=== PATIENT | female | born 1970 | race Caucasian/White ===

== ENCOUNTER 2019-01-12 16:08 | Outpatient (REF) | payer SELFPAY ==
[2019-01-12 22:15] LABS: Abs Immature Grans 0.01 k/cumm (0.0-0.09); Absolute Basophil Count 0.02 k/cumm (0.0-0.2); Absolute Eosinophil Count 0.15 k/cumm (0.0-0.7); Absolute Lymphocyte Count 2.23 k/cumm (1.2-3.4); Absolute Neutrophil Count 4.59 k/cumm (1.2-6.7); Basophils % 0.3; HCT 36.7 % (36.0-46.0); HGB 12.4 g/dL (12.0-15.5); Immature Grans % 0.1; Lymphocytes % 29.3; Mean Corp. HGB Concentration 33.8 g/dL (32.0-36.0); Mean Corpuscular Hemoglobin 29.8 pg (27.0-33.0); Mean Corpuscular Volume 88.2 fL (80-95); Mean Platelet Volume 10.1 fL (8.0-11.0); Monocytes % 7.9; Neutrophils % 60.4; Platelet Count 337 x1000/uL (130-400); RBC 4.16 m/cumm (4.00-5.20); RBC Distribution Width 13.5 % (11.7-14.6)
[2019-01-12 22:23] LABS: Iron 24 ug/dL (50-175); Total Iron Binding Capacity 432 ug/dL (250-450); Transferrin Sat 6 % (15-50)
[2019-01-12 22:32] LABS: ALT 15 U/L (12-78); AST 10 U/L (15-37); Albumin 3.9 g/dL (3.4-5.0); Alkaline Phosphatase 86 U/L (46-116); Anion Gap 11.4 mmol/L (3-11); BUN 7 mg/dL (7-18); Bilirubin, Total 0.3 mg/dL (0.2-1.0); CO2 24.6 mmol/L (21.0-32.0); CREATININE 0.57 mg/dL (0.55-1.02); Chloride 100 mmol/L (98-107); Ferritin 10 ng/mL (8-388); Glucose 360 mg/dL (70-100); Potassium 4.5 mmol/L (3.5-5.1); Sodium 136 mmol/L (136-145); TSH (W/Ref FT4) 1.24 uIU/mL (0.36-3.74); Total Protein 7.2 g/dL (6.4-8.2)
[2019-01-14 09:34] LABS: Transferrin 333 mg/dL (201-352)
== END 2019-01-12 16:28 ==
LOC: NCHCN 16:08
PROVIDERS: PCP Family Medicine; Visit Provider Family Medicine
DX: R63.4 Abnormal weight loss (principal); R53.83 Other fatigue; R63.1 Polydipsia
CPT/HCPCS: 80053; 82728; 83540; 83550; 84443; 84466; 85025

== ENCOUNTER 2020-01-15 14:43 | Outpatient (REF) | payer OTHER, SELFPAY ==
[2020-01-15 21:33] LABS: COMMENT (LAB VIEW ONLY) 31.55 mg/dL; Microalb ug/mg Crea 33.6 ug/mg Cr
[2020-01-15 21:33] LABS: Iron 88 ug/dL (50-170)
[2020-01-15 21:51] LABS: TSH (W/Ref FT4) 1.15 uIU/mL (0.36-3.74)
[2020-01-15 21:59] LABS: ALT 10 U/L (14-59); AST 12 U/L (15-37); Alkaline Phosphatase 47 U/L (46-116); Anion Gap 9.1 mmol/L (3-11); BUN 5 mg/dL (7-18); Bilirubin, Total 0.3 mg/dL (0.2-1.0); CO2 25.9 mmol/L (21.0-32.0); CREATININE 0.46 mg/dL (0.55-1.02); Calcium 9.4 mg/dL (8.5-10.1); Calculated LDL 86 mg/dL (<100); Chloride 103 mmol/L (98-107); Cholesterol 145 mg/dL (<200); Ferritin 14 ng/mL (8-252); Glucose 188 mg/dL (74-106); HDL Cholesterol 45 mg/dL (40-60); Potassium 4.3 mmol/L (3.5-5.1); Sodium 138 mmol/L (136-145); Triglyceride 71 mg/dL (<150)
[2020-01-18 12:47] LABS: IgA 156 mg/dL (85-499); Interpretation (See Note); Tissue Transglutaminase IgA <1.2 U/mL (<4.0)
[2020-01-22 10:33] LABS: GAD65 Ab Assay 0.17 nmol/L (<= 0.02)
== END 2020-01-15 15:03 ==
LOC: NCHCN 14:43
PROVIDERS: Family Medicine; PCP Family Medicine; Visit Provider Family Medicine
DX: R63.6 Underweight (principal); E11.65 Type 2 diabetes mellitus with hyperglycemia; R03.0 Elevated blood-pressure reading, without diagnosis of hypertension; E61.1 Iron deficiency; N93.9 Abnormal uterine and vaginal bleeding, unspecified
CPT/HCPCS: 80053; 80061; 82306; 82784; 83516; 86341; 82043; 82570; 82728; 83540; 84443; 86337

== ENCOUNTER 2020-03-18 10:16 | Outpatient (REF) | payer OTHER, SELFPAY ==
[2020-03-18 21:26] LABS: Hemoglobin A1C 8.3 % (<5.7)
[2020-03-21 08:16] LABS: Vitamin D 25 Total 43.6 ng/ml (30-100)
== END 2020-03-18 10:36 ==
LOC: NCHCN 10:16
PROVIDERS: PCP Family Medicine; Visit Provider Family Medicine
DX: E11.65 Type 2 diabetes mellitus with hyperglycemia (principal); E55.9 Vitamin D deficiency, unspecified
CPT/HCPCS: 82306; 83036

== ENCOUNTER 2020-12-01 15:17 | Outpatient (REF) | payer OTHER, SELFPAY ==
--- NOTE | 2020-12-01 15:00 | PAPFT_PTH ---
PATIENT: Irma Manzano [id number] AGE/SX: 50/F ROOM: RE12/01/[address]: Natalie Jeff : 1970 BED: DIS: 12/01/2020 SPEC #: [id number] RECD: 12/02/20 13:09 STATUS: [place] REQ #: [id number] BEATRIZ: 12/01/20 15:[address]: Natalie Jeff DEPT: [facility] Cytology RECD BY: Otilia Polanco ENTERED: 12/02/20 13:09 SP TYPE: PAPFT OTHR DR: Naila Marcial Tissues: 1 - CX/ENDOCX FOR PAP SMEARS Procedures: PAP THIN PREP/UVM Screening HPV DNA PROBE Comments: [id number]
== END 2020-12-01 15:18 | disposition home or self-care (01) ==
LOC: NCHCN 15:17
PROVIDERS: PCP Family Medicine; Visit Provider Family Medicine
DX: Z00.00 Encounter for general adult medical examination without abnormal findings (principal); Z12.4 Encounter for screening for malignant neoplasm of cervix; Z11.51 Encounter for screening for human papillomavirus (HPV)
CPT/HCPCS: 88142; 87624

== ENCOUNTER 2022-09-07 21:37 | Outpatient (REF) | payer OTHER, SELFPAY ==
[2022-09-07 22:03] LABS: Anion Gap 5.4 mmol/L (3-11); BUN 13 mg/dL (7-18); CO2 28.6 mmol/L (21.0-32.0); CREATININE 0.9 mg/dL (0.55-1.02); Calcium 9.7 mg/dL (8.5-10.1); Calculated LDL 110 mg/dL (<100); Chloride 101 mmol/L (98-107); Cholesterol 199 mg/dL (<200); Estimated GFR 76.92 (mL/min/1.73m2); Glucose 215 mg/dL (74-106); HDL Cholesterol 82 mg/dL (40-60); Potassium 4.6 mmol/L (3.5-5.1); Sodium 135 mmol/L (136-145); Triglyceride 37 mg/dL (<150)
[2022-09-07 22:30] LABS: Microalb ug/mg Crea 6.4 ug/mg Cr
== END 2022-09-07 21:38 | disposition home or self-care (01) ==
LOC: NCHCN 21:37
PROVIDERS: PCP Family Medicine; Visit Provider Registered Nurse
DX: E10.9 Type 1 diabetes mellitus without complications (principal); I10 Essential (primary) hypertension
CPT/HCPCS: 80048; 80061; 82043; 82570

== ENCOUNTER 2024-02-04 16:12 | Outpatient (REF) | payer OTHER, SELFPAY ==
--- OUTSIDE RECORDS SUMMARY | 2024-02-04 16:16 | XMS_ITS | Encounter Summary ---
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 Never 06/28/2020 Average Number of Drinks Not on file 021 Frequency of Binge Drinking Not on file 06/17 Interpersonal Safety Answer Date Record ed Physically Hurt Never 05/10/2020 Verbally Threaten Not on file 05/10/2020 Sex and Gender Information Value Date Recorded Sex Assigned at Not on file Gender Identity Female 06/28/2020 9:14 EST Sexual Orientation Not on file COVID-19 Exposure Response Date Recorded In the last month, have you been in contact with someone who was confirmed or suspected to have Coronavirus / COVID-19? No / Unsure 07/01/2020 12:32 EST documented as of this encounter Last Filed Vital Signs Vital Sign Reading Time Taken Comments Blood Pressure 142/86 07/28/2020 0811 EST Pulse 64 07/28/2020 0811 EST Temperature - - Respiratory Rate 16 07/28/2020 0811 EST Oxygen Saturation - - Inhaled Oxygen Concentration - - Weight 52.2 kg (115 lb) 07/28/2020 0811 EST Height - - Body Mass Index 17.03 06/28/2020 1256 EST documented in this encounter Patient Instructions * Patient Instructions* Coco Gamboa, JIN - 07/28/2020 8:00 EST Images from the original note were not included. Switch lantus to the morning and decrease to 9 units. Continue to use [employer] CGM. Follow-up in 2 months. Sign up for [employer] account and reach out in 1 month to review data with concerns. [facility] Patient Instructions Noninsulin Medicines for Type 2 Diabetes: Care Instructions Overview There are different types of noninsulin medicines for diabetes. Each works in a different way. But they all help you control your blood sugar. Some types help your body make insulin to lower your blood sugar. Others lower how much insulin your body needs. Some can slow how fast your body digests sugars. And some can remove extra glucose through your urine. You may need to take more than one medicine for diabetes. Two or more medicines may work better to lower your blood sugar level than just one does. ?? Metformin. This lowers how much glucose your liver makes. And it helps you respond better to insulin. It also lowers the amount of stored sugar that your liver releases when you are not eating. ?? Sulfonylureas. These help your body release more insulin. Some work for many hours. They can cause low blood sugar if you don't eat as you planned. An example is glipizide. ?? Thiazolidinediones. These reduce the amount of blood glucose. They also help you respond better to insulin. An example is pioglitazone. ?? SGLT2 inhibitors. These help to remove extra glucose through your urine. They may also help somepeople lose weight. An example is ertugliflozin. ?? DPP-4 inhibitors. These help your body raise the level of insulin after you eat. They also help your body make less of a hormone that raises blood sugar. An example is alogliptin. ?? Incretin hormones (GLP-1 receptor agonists). These help your body make a protein that can raise your insulin level and make you less hungry. They're given as shots or pills. An example is semaglutide. ?? Meglitinides. These help your body release insulin. They also help slow how your body digests sugars. So they can keep your blood sugar from rising too fast after you eat. ?? Alpha-glucosidase inhibitors. These keep starches from breaking down. This means that they lowerthe amount of glucose absorbed when you eat. They don't help your body make more insulin. So they will not cause low blood sugar unless you use them with other medicines for diabetes. Follow-up care is a galdamez part of your treatment and safety. Be sure to make and go to all appointments, and call your doctor if you are having problems. It's also a good idea to know your test resultsand keep a list of the medicines you take. How can you care for yourself at home? ?? Eat a healthy diet. Get some exercise each day. This may help you to reduce how much medicine you need. ?? Do not take other prescription or gnoq-qtq-gzlkmjn medicines, vitamins, herbal products, or supplements without talking to your doctor first. Some medicines for type 2 diabetes can cause problems with other medicines or supplements. ?? Tell your doctor if you plan to get . Some of these drugs are not safe for women. ?? Be safe with medicines. Take your medicines exactly as prescribed. Meglitinides and sulfonylureas can cause your blood sugar to drop very low. Call your doctor if you think you are having a problem with your medicine. ?? Check your blood sugar often. You can use a glucose monitor. Keeping track can help you know howcertain foods, activities, and medicines affect your blood sugar. And it can help you keep your blood sugar from getting so low that it's not safe. When should you call for help? Call 911 anytime you think you may need emergency care. For example, call if: ? You passed out (lost consciousness). ? You are confused or cannot think clearly. ? Your blood sugar is very high or very low. Watch closely for changes in your health, and be sure to contact your doctor if: ? Your blood sugar stays outside the level your doctor set for you. ? You have any problems. Where can you learn more? Go to https://www.Scurri.net/GlycomindsealSkyFuel or log into your [employer] account at https://[employer].Voddler Enter H153 in the search box to learn more about Noninsulin Medicines for Type 2 Diabetes: Care Instructions. Current as of: June 05, 2019?Content Version: 12.6 ?? [id number] [employer]. Care instructions adapted under license by [facility]. If you have questions about a medical condition or this instruction, always ask your healthcare professional. [employer] disclaims any warranty or liability for your use of this information. documented in this encounter Progress Notes * Sally Krause RN - 07/28/2020 0800 EST Needs eye exam A1c done A1c 7.2 - 06/16/2020 Lab Results Component Value Date UABCR 23.7 06/28/2020 * Coco Gamboa APRN - 07/28/2020 0800 EST Reason for Visit: DM f/up PCP: Dr. Jeff OTHER PROVIDERS: Irma Manzano is a 50 y.o. male/female who presented to the clinic for a follow-up in [facility], with a history of DM for 1.5 yrs. Hx of former smoker (quit 05/2020). Referred from [facility]. Diagnosed in late 40's with A1C 14.5, BG 400 (02/2019). IRENE positive, ICA and IAA negative (04/2020)TSH 1.15 (12/2019). Cpeptide 0.5 fasting. 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 Although she is flex and often switches her shifts. She lives with her boyfriend and states he is a good support to her. She has 3 adult children with 4 grandkids. She reports smoking cessation about 3 weeks now. Difficult to maintain as her live-in boyfriends also smokes. Random BG in clinic 116 via CGM. Sylvia 2 CGM TIR 77%, TAR 22%, TBR 1%. CV 28.1% GMI 6.9%. She has appreciated the Sylvia CGM. She is much more aware of her BG trend throughout the day. States she initially noticed a trend in the afternoon, evenings of a higher BG's. She spoke with her PCP and they increased to 10 units of lantus. She has noticed some lows overnight. [facility] DM: mom w/ GUILLERMO (diagnosed at age 50) Maternal uncle w/ TIIDM MGF stroke believes heart concerns on her dad side. Recent A1C: 7.2 (05/2020) 8.2 (03/2020) Diabetic Medications: Metformin 1000 mg BID Lantus 10 units at bedtime (started a couple months ago) Current monitoring regimen: twice a day Frequency of monitoring? : Fasting range: 80-125 (can get down to 60-70's.) Preprandial range: before dinner- 80-130 Postprandial range: Any episodes of hypoglycemia? About 5 episodes since starting insulin Cause of hypoglycemia? Work Nutrition Daily Recall: Breakfast: protein-egg/turkey sausage, WW toast, homefries, coffee w/ SF coffeemate, kiswahili yogurt Lunch: sandwich w/ turkey/cheddar/lettuce/tomato, soup chicken/noodle Dinner: soup if at work, cheese sticks, Snacks: not much, crackers w/ PB, yogurt, Beverages: coffee, SF soda, no etoh. Exercise: active at work, plays/walks with dogs, when able to plays with grandkids. Diabetes Related Problems Eye exam current (within one year): Overdue. Needs to schedule. Wears glasses. Last dental exam: overdue. CVD,PVD,CAD: no Statin: no, well controlled (12/2019) Aspirin: no ACEI/ARB: no Prior visit with director post: no Foot care: self Comorbidities: Retinopathy: no Nephropathy/Kidney function: GFR >60 (01/2020) MCR up to date? no Neuropathy: no Review of Systems Constitutional: Negative. Eyes: Negative. Endocrine: Negative. Neurological: Negative. Physical Exam Constitutional: Appearance: Normal appearance. HENT: Head: Normocephalic and atraumatic. Neck: Musculoskeletal: Normal range of motion and neck supple. Cardiovascular: Rate and Rhythm: Normal rate and regular rhythm. Pulmonary: Effort: Pulmonary effort is normal. Breath sounds: Normal breath sounds. Skin: General: Skin is warm and dry. Neurological: Mental Status: She is alert and oriented to person, place, and time. Psychiatric: Mood and Affect: Mood normal. Behavior: Behavior normal. Thought Content: Thought content normal. No results found for: HGBA1C No results found for: MICROALBUR, [id number] No results found for: NA, K, CL, CO2, BUN, CSFGLU, CREATINE, GLU, CA Irma Manzano is a 50 y.o. female who presented to the clinic for a follow-up in [facility] DM, with ahistory of DM for 2 yrs. 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 Discussed how this will help prevent lows overnights. Encouraged her success on good control of her BG's. Continue to use Sylvia CGM. Follow-up in 2 months. Sign up for [employer] account and reach out in 1 month to review data with concerns. Discussed carb intake and adding whole complex carbs. She continues to work on finding an filler blender near her home. Patient Goals: A1C <7% Exercise: 150-300 minutes of CV exercise/week. I spent a total of 30 minutes on the date of this encounter meeting with the patient and reviewing documentation/coordinating care as described in the above note. 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 Discussed how this will help prevent lows overnights. Encouraged her success on good control of her BG's. Continue to use Sylvia CGM. Follow-up in 2 months. Sign up for [employer] account and reach out in 1 month to review data with concerns. Discussed carb intake and adding whole complex carbs. She continues to work on finding an filler blender near her home. 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 07/28/2020 documented as of this encounter Care Teams Audit Control Clerk Relationship Specialty Start Date End Date Juan C [facility] [address] [place] [address] PCP - General 06/28/20 documented as of this encounter
--- OUTSIDE RECORDS SUMMARY | 2024-02-04 16:16 | XMS_ITS ---
Author Organization Unknown Address [address] [place] [address] [phone] Phone Care Team Providers Care Engraving Press Operator Name Role Phone DUKE Mai Attending Unavailable AMBERLY Brumfield Primary Unavailable Results XR WRIST 3V RT* - Completed: 10/16/2022 10:00 [facility] [place], [place] [address] PACS LEGAL REFEREE REPORT Patient Name: ADOLFO MALAGON MRN: Sex: : Age: [id number] F 1970 52 Account: Accession: Admit: StayType: [id number] 10/16/2022 CLINIC Ordered: Order ID: Submitted: Ordering Provider: 10/16/2022 09:53 19772 [facility] SIMONA WALL Completed: Technologist: Resulted: 10/16/2022 10:00 LXR 10/16/2022 10:11 Study Description: XR WRIST 3V RT Study Reason: Pain Technique: 2D digital imaging was performed. 3 images were obtained. COMPARISON: None. FINDINGS: Bones: No acute fractures present. No bony destructive lesion is seen. Joints: No dislocation is present. The joint spaces are well-maintained. Soft tissues: Unremarkable. IMPRESSION: No acute abnormality. Report Digitally Signed by Loi Bassett on 10/16/2022 10:11 AM EDT Social History Type Status Start Date End Date Code Code Syst em Sex Female Hospital Discharge Instructions Should you have any questions prior to discharge, please contact a member of your healthcare team. If you have left the hospital and have any questions, please contact your primary care physician. Reason For Referral No Data Found Plan of Treatment No Data Found Encounters Encounter Diagnosis Start Date Code Code Sys tem 10/16/2022 [id number] SNOMED-CT Personal Care Team Section Performer Name Performer Role Active Date Inactive Da te
--- OUTSIDE RECORDS SUMMARY | 2024-02-04 16:16 | XMS_ITS | Encounter Summary ---
Author Organization [facility] Address [address] [place] [address] Care Team Providers Care Street Light Cleaner Name Role Phone Julio Cesar Irizarry [facility] Primary Care Provider [phone] Encounter Details Date Type Department Care Team (Latest Contact Info) Description 06/28/2020 Travel Social History Tobacco Use Types Packs/Day Years Used Date Smoking Tobacco: Former Cigarettes Q uit: 05/2020 Smokeless Tobacco: Never Alcohol Use Standard Drinks/Week Comments Never 0 (1 standard drink = 0.6 oz pur e alcohol) AUDIT-C Answer Date Recorded Q1: How often do you have a drink containing alc ohol? Never 06/28/2020 Average Number of Drinks Not on file Frequency of Binge Drinking Not on file [...] have Coronavirus / COVID-19? No / Unsure 06/28/2020 12:11 EST documented as of this encounter Plan of Treatment Not on file documented as of this encounter Visit Diagnoses Not on filedocumented in this encounter Care Teams Street Light Cleaner Relationship Specialty Start Date End Date Julio Cesar Irizarry [facility] [address] [place] [address] PCP - General 06/28/20 documented as of this encounter
--- OUTSIDE RECORDS SUMMARY | 2024-02-04 16:16 | XMS_ITS | Encounter Summary ---
Author Organization [facility] Address [address] [place] [address] Care Team Providers Care Sales Floor Team Member Name Role Phone Julio Cesar Irizarry [facility] Primary Care Provider [phone] Reason for Visit * Reason Onset Date Comments Medications Refill 07/13/2020 Encounter Details Date Type Department Care Team (Late st Contact Info) Description 07/13/2020 Refill [facility] Endocrinology [address] [place] [address] Sally Kraues RN Medications Refill Social History Tobacco Use Types Packs/Day Years [...] 12:32 EST documented as of this encounter Ordered Prescriptions Prescription Sig Dispensed Refills Start Date End Da te flash glucose sensor (FREESTYLE JOAO 2 SENSOR) kit 1 Units by misc (non-drug; combo route) route every 14 days. 6 Kit 3 07/13/2020 06/13/2021 documented in this encounter Plan of Treatment Not on file documented as of this encounter Visit Diagnoses Not on filedocumented in this encounter Care Teams Sales Floor Team Member Relationship Specialty Start Date End Date Juan C [facility] [address] [place] [address] PCP - General 06/28/20 documented as of this encounter
--- OUTSIDE RECORDS SUMMARY | 2024-02-04 16:16 | XMS_ITS | Encounter Summary ---
Author Organization [facility] Address [address] [place] [address] Care Team Providers Care Waist Pleater Name Role Phone Julio Cesar Irizarry [facility] Primary Care Provider [phone] Reason for Visit * Reason Onset Date Comments Medications Refill 06/13/2021 Encounter Details Date Type Department Care Team (Late st Contact Info) Description 06/13/2021 Telephone [facility] Endocrinology [address] [place] [address] Shanthi Garcia RN Medications Refill Social History Tobacco Use [...] 9:14 EST Sexual Orientation Not on file documented as of this encounter Ordered Prescriptions Prescription Sig Dispensed Refills Start Date End Da te flash glucose sensor (FREESTYLE JOAO 2 SENSOR) kit 1 Units by misc (non-drug; combo route) route every 14 days. Must keep appt for additional refills. 6 Kit 06/13/2021 documented in this encounter Miscellaneous Notes * Telephone Encounter - Jana Porter - 06/19/2021 1643 EST Left message for patient to call to schedule an appointment with Coco * Telephone Encounter - Shanthi Garcia RN - 06/13/2021 1606 EST Prescription faxed to pharmacy per Coco Gamboa's orders. documented in this encounter Plan of Treatment Not on file documented as of this encounter Visit Diagnoses Not on filedocumented in this encounter Discontinued Medications Medication Sig Discontinue Reason Start Date End Da te flash glucose sensor (FREESTYLE JOAO 2 SENSOR) kit 1 Units by misc (non-drug; combo route) route every 14 days. Reorder 07/13/2020 06/13/2021 documented as of this encounter Care Teams Waist Pleater Relationship Specialty Start Date End Date Juan C [facility] [address] [place] [address] PCP - General 06/28/20 documented as of this encounter
--- OUTSIDE RECORDS SUMMARY | 2024-02-04 16:16 | XMS_ITS | Encounter Summary ---
Author Organization [facility] Address [address] [place] [address] Care Team Providers Care Social Work Nurse Name Role Phone Juan C [facility] Primary Care Provider [phone] [phone] Encounter Details Date Type Department Care Team (Late st Contact Info) Description 12/05/2020 Lab Requisition [facility] Pathology & Laboratory Medicine - [facility] [address] [place] [address] Lindsey Jeff MD [address] [place] [address] [address] [place], [place] [address] Encounter for general adult medical examination without abnormal findings; Encounter for screening for malignant neoplasm of cervix Social History Tobacco Use Types Packs/Day Years [...] on file documented as of this encounter Plan of Treatment Not on file documented as of this encounter Procedures Procedure Name Priority Date/Time Associated Diagnosis Comments PAP TEST Today 12/01/2020 15:00 EDT Encounter for general adult medical examination without abnormal findings Encounter for screening for malignant neoplasm of cervix HPV DNA DETECTION WITH GENOTYPING, PCR Today 12/01/2020 15:00 EDT Encounter for general adult medical examination without abnormal findings Encounter for screening for malignant neoplasm of cervix documented in this encounter Results * HUMAN PAPILLOMAVIRUS (HPV) DETECTION-HIGH RISK TYPES (12/01/2020 15:00 EDT) HPV other High Risk types, PCR Negative Negative 12/14/2020 14:30 EDT [facility] Comment:No E6 or E7 mRNA is detected from HPV types 16,18,31,33,35,39,45,51,52,56,58,59,66, and 68 by freezing machine operator mediated amplification. Papanicolaou smear specimen (specimen) CERVIX UTERI STRUCTURE / Unknown 12/01/2020 15:00 EDT 12/13/2020 11:28 EDT Lindsey Jeff MD MICROBIOLOGY - GENERAL ORDERABLES [facility] [address] [place] [address] * PAP TEST (12/01/2020 15:00 EDT) Specimens A. Cervix and/or Endocervix , ThinPrep Imaging System with Manual Evaluation 12/14/2020 14:30 EDT [facility] Specimen Adequacy Satisfactory for Evaluation - transformation zone component present 12/14/2020 14:30 EDT [facility] General Categorization Negative for intraepithelial lesion or malignancy 12/14/2020 14:30 EDT [facility] Attestation . 12/14/2020 14:30 T [facility] at 1430 Clinical History See below 12/15/19 14:30 EDT [facility] HPV The result for the Human Papillomavirus (HPV) Detection-High Risk Types is Negative. No E6 or E7 mRNA is detected from HPV types 16,18,31,33,35,39 ,45,51,52,56,58,5 9,66, and 68 by freezing machine operator mediated amplification.Candi ting was performed on specimen [id number] and was resulted on 12/14/2020 1430 EDT by DAVIDA, LAB INSTRUMENT RESULTS IN 12/14/2020 14:30 EDT [facility] Performing Lab [facility] 12/14/2020 14:30 EDT [facility] Scanned Images 12/14/2020 14:30 EDT [facility] Papanicolaou smear specimen (specimen) CERVIX UTERI STRUCTURE / Unknown 12/01/2020 15:00 EDT 12/05/2020 15:53 EDT Lindsey Jeff MD PATHOLOGY ORD ERABLES Performing Organization Address City/State/[facility] Co de Phone Number [facility] [address] [place] [address] documented in this encounter Visit Diagnoses Diagnosis Encounter for general adult medical examination without abnormal findings Unspecified general medical examination Encounter for screening for malignant neoplasm of cervix Screening for malignant neoplasm of the cervix documented in this encounter Care Teams Social Work Nurse Relationship Specialty Start Date End Date Juan C, [facility] [address] [place] [address] PCP - General 06/28/20 documented as of this encounter
--- OUTSIDE RECORDS SUMMARY | 2024-02-04 16:16 | XMS_ITS | Encounter Summary ---
Author Organization [facility] Address [address] [place] [address] Care Team Providers Care Toeing Stockings Name Role Phone Julio Cesar Irizarry [facility] Primary Care Provider +1 [phone] Encounter Details Date Type Department Care Team (Latest Contact Info) Description 07/01/2020 Travel Social History Tobacco Use Types Packs/Day [...] 12:32 EST documented as of this encounter Plan of Treatment Not on file documented as of this encounter Visit Diagnoses Not on filedocumented in this encounter Care Teams Toeing Stockings Relationship Specialty Start Date End Date Julio Cesar Irizarry [facility] [address] [place] [address] PCP - General 06/28/20 documented as of this encounter
--- OUTSIDE RECORDS SUMMARY | 2024-02-04 16:16 | XMS_ITS | Encounter Summary ---
Author Organization [facility] Address [address] [place] [address] Care Team Providers Care Upper And Bottom Lacer Hand Name Role Phone Julio Cesar Irizarry [facility] Primary Care Provider [phone] [phone] Reason for Visit * Reason Comments Diabetes Encounter Details Date Type Department Care Team (Late st Contact Info) Description 06/28/2020 13:00 EST Office Visit [facility] Endocrinology [address] [place] [address] Coco Gamboa, LOG DATA TECHNICIAN [address] [facility] [address] [place] [address] Type 2 diabetes mellitus with hyperglycemia, with long-term current use of insulin ([facility]) (Primary Dx) Social History Tobacco Use Types [...] 12:11 EST documented as of this encounter Last Filed Vital Signs Vital Sign Reading Time Taken Comments Blood Pressure 128/82 06/28/2020 1256 EST Pulse 96 06/28/2020 1256 EST Temperature - - Respiratory Rate 16 06/28/2020 1256 EST Oxygen Saturation - - Inhaled Oxygen Concentration - - Weight 51.3 kg (113 lb) 06/28/2020 1256 EST Height 175 cm (5' 8.9) 06/28/2020 1256 EST Body Mass Index 16.74 06/28/2020 1256 EST documented in this encounter Progress Notes * Slaly Krause, VICKY - 06/28/2020 1300 EST [facility] referral Needs eye, foot and micro ? Labs done Last a1c- 06/16/2020=7.2 Glucose-98 * Coco Gamboa APRN - 06/28/2020 1300 EST Reason for Visit: DM initial PCP: Dr. Jeff OTHER PROVIDERS: Irma Manzano is a 49 y.o. male/female who presented to the clinic for an initial consult in [facility], with a history of DM for 1.5 yrs. Hx of former smoker (quit 05/2020). Referred from [facility]. Diagnosed in late 40's with A1C 14.5, BG 400 (02/2019). IRENE positive, ICA and IAA negative (04/2020)TSH 1.15 (12/2019). Initially went on metformin. About 1 year after added Januvia, summer 2019. Notes this worked initially although after a couple of months did not seem to work any longer. Added Lantus end of 2019. States this has greatly helped to bring her BG's down. Notes she lost weight quickly starting about 2 years ago, in total lost about 50 lbs. States she was not trying to loose weight, didn't change her habits at that time. States she has always been underweight, although this episode was much more rapid. Denies GDM with her kids. Denies other health concerns. 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 Although she is flex and often switches her shifts. She lives with her boyfriend and states he is a good support to her. She has 3 adult children with 4 grandkids. She reports smoking cessation about 3 weeks now. Difficult to maintain as her live-in boyfriends also smokes. Random BG in clinic 98, she did have breakfast today. No lunch yet. [facility] DM: mom w/ TIIDM (diagnosed at age 50) Maternal uncle w/ TIIDM MGF stroke ?believes heart concerns on her dad side. Recent A1C: 7.2 (05/2020) 8.2 (03/2020) Diabetic Medications: Metformin 1000 mg BID Januvia 100 mg daily Lantus 8 units at bedtime (started a couple months ago) Current monitoring regimen: twice a day Frequency of monitoring? : Fasting range: 80-125 (can get down to 60-70's.) Preprandial range: before dinner- 80-130 Postprandial range: Any episodes of hypoglycemia? About 5 episodes since starting insulin Cause of hypoglycemia? Work Nutrition Daily Recall: Breakfast: protein-egg/turkey sausage, WW toast, homefries, coffee w/ SF coffeemate, tajik yogurt Lunch: sandwich w/ turkey/cheddar/lettuce/tomato, soup chicken/noodle [...] Aspirin: no ACEI/ARB: no Prior visit with mobile ui/ux designer: no Foot care: self Comorbidities: Retinopathy: no Nephropathy/Kidney function: GFR >60 (01/2020) MCR up to date? no Neuropathy: no Review of Systems Constitutional: Negative. Endocrine: Negative. Neurological: Negative. Physical Exam Constitutional: Appearance: Normal appearance. HENT: Head: Normocephalic and atraumatic. Neck: Musculoskeletal: Normal range of motion and neck supple. Cardiovascular: Rate and Rhythm: Normal rate and regular rhythm. Pulses: Dorsalis pedis pulses are 1+ on the right side and 1+ on the left side. Posterior tibial pulses are 1+ on the right side and 1+ on the left side. Pulmonary: Effort: Pulmonary effort is normal. Breath sounds: Normal breath sounds. Feet: Right foot: Protective Sensation: 3 sites tested. 3 sites sensed. Skin integrity: Skin integrity normal. Toenail Condition: Right toenails are normal. Left foot: Protective Sensation: 3 sites tested. 3 sites sensed. Skin integrity: Skin integrity normal. Toenail Condition: Left toenails are normal. Skin: General: Skin is warm and dry. Neurological: Mental Status: She is alert and oriented to person, place, and time. Psychiatric: Mood and Affect: Mood normal. Behavior: Behavior normal. No results found for: HGBA1C No results found for: MICROALBUR, [id number] No results found for: NA, K, CL, CO2, BUN, CSFGLU, CREATINE, GLU, CA Irma Manzano is a 49 y.o. female who presented to the clinic for an initial consult in [facility], with a history of DM for 2 yrs. Problem List Items Addressed This Visit Endocrine/Metabolic Type 2 diabetes mellitus with hyperglycemia, with long-term current use of insulin ([facility]) - Primary IRENE positive with PCP ?MALCOLM Will check c-peptide and fasting glucose. Would like to place ipro, she will RTC this Saturday for placement. No changes in medication regimen today, continue metformin 1000 mg BID, januvia 100 mg daily, insulin Continuing checking BG's 2-4X/day as able. Given nutritional packet and reviewed adding proteins and healthier fats to her diet. Extensively reviewed the disease progression, prior labs results and what next steps are. Answered all questions as able. F/up in 1 month for Ipro review. Will look start personal CGM at that time. Pending lab work, will d/c januvia and add short-acting insulin at f/up. Given referral to ophthalmology and encouraged to set up visit. Relevant Orders POCT GLUCOSE, MANUAL ENTRY (Completed) URINE PYNNABS-MT-FEOMIFDEHS RATIO (ACR) C PEPTIDE AMB CONS/FOLLOW UP OPHTHALMOLOGY GLUCOSE, SERUM Patient Goals: A1C <7% Exercise: 150-300 minutes of CV exercise/week. Handouts provided for ongoing self education I spent a total of 60 minutes on the date of this encounter meeting with the patient and reviewing documentation/coordinating care as described in the above note. 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 Would like to place ipro, she will RTC this Saturday for placement. No changes in medication regimen today, continue metformin 1000 mg BID, januvia 100 mg daily, insulin Continuing checking BG's 2-4X/day as able. Given nutritional packet and reviewed adding proteins and healthier fats to her diet. Extensively reviewed the disease progression, prior labs results and what next steps are. Answered all questions as able. F/up in 1 month for Ipro review. Will look start personal CGM at that time. Pending lab work, will d/c januvia and add short-acting insulin at f/up. Given referral to ophthalmology and encouraged to set up visit. documented in this encounter Plan of Treatment Not on file documented as of this encounter Procedures Procedure Name Priority Date/Time Associated Diagnosis Comments MICROALBUMIN, URINE Routine 06/28/2020 1 3:30 EST Type 2 diabetes mellitus with hyperglycemia, with long-term current use of insulin ([facility]) POCT GLUCOSE, MANUAL ENTRY Routine 06/28/2020 Type 2 diabetes mellitus with hyperglycemia, with long-term current use of insulin ([facility]) documented in this encounter Results * (ABNORMAL) MICROALBUMIN, URINE (06/28/2020 13:30 EST) Albumin, Urine 2.30(H) <1.7 mg/dL 06/28/2020 16:26 EST [facility] Lab Urine Albumin to Creatinine Ratio 23.7 ug/mg 06/28/2020 16:26 EST [facility] Comment: Normal: <30 ug/mg Creat Microalbuminuria: 30-300 ug/mg Creat Clinical albuminuria: >300 ug/mg Creat Creatinine, Urine 96.80 mg/dL 06/28/2020 16:26 EST [facility] 06/28/2020 13:3 0 EST 06/28/2020 15:48 EST Coco Gamboa NP HEMATOLOGY & PF4 ORDERABLES [facility] [address] [place] [address] * POCT GLUCOSE, MANUAL ENTRY (06/28/2020) Glucose, POC 98 70 - 100 mg/dL [facility] POINT OF CARE [facility] LAB POC COMMENT MANUAL (GLUCOSE) [facility] POINT OF costume shop manager ID [facility] PO[facility] Blood CAPILLARY BLOOD / Unknown 06/28/2020 Coco Gamboa NP POINT OF CARE GERALDINE T ORDERABLES [facility] POINT OF CARE documented in this encounter Visit Diagnoses Diagnosis Type 2 diabetes mellitus with hyperglycemia, with long-term current use of insulin ([facility])- Primary documented in this encounter Historical Medications * This list may reflect changes made after this encounter. Medication Sig Dispensed Refills Start Date End Date ferrous gluconate (FERGON) 324 mg (38 mg iron) tablet Take 324 mg by mouth daily with breakfast. added in this encounter Care Teams Upper And Bottom Lacer Hand Relationship Specialty Start Date End Date Juan C [facility] [address] [place] [address] PCP - General 06/28/20 documented as of this encounter
--- OUTSIDE RECORDS SUMMARY | 2024-02-04 16:16 | XMS_ITS | Encounter Summary ---
Author Organization [facility] Address [address] [place] [address] Care Team Providers Care Gift Basket Packer Name Role Phone Juan C [facility] Primary Care Provider [phone] Reason for Visit * Reason Onset Date Comments Medications Refill 06/14/2021 Encounter Details Date Type Department Care Team (Late st Contact Info) Description 06/14/2021 Refill [facility] Endocrinology [address] [place] [address] Shanthi Garcia RN Medications Refill Social History [...] on filedocumented in this encounter Care Teams Gift Basket Packer Relationship Specialty Start Date End Date [facility] C[facility] [address] [place] [address] PCP - General 06/28/20 documented as of this encounter
--- OUTSIDE RECORDS SUMMARY | 2024-02-04 16:16 | XMS_ITS | Clinical Summary ---
Author Organization [facility] Address [address] [place] [address] Care Team Providers Care Net Technical Architect Name Role Phone Julio Cesar Irizarry [facility] Primary Care Provider [phone] [phone] Allergies No known active allergies Medications Medication Sig Dispensed Refills Start Date End Date Status metFORMIN (GLUCOPHAGE) 1,000 mg tablet Take 1,000 mg by mouth 2 times daily. Active nicotine (NICODERM CQ) 21 mg/[address] 21 mg onto the skin daily. Active cholecalciferol, Vitamin D3, 1,000 unit tablet Take 2,000 Units by mouth daily. Active insulin pen needles 31G x 3/16 (PEN NEEDLE) by misc (non-drug; combo route) route daily. Active insulin glargine (LANTUS SOLOSTAR) 100 unit/mL (3 mL) injection penIndications:incre ased to 10 units by pcp Inject 8 Units into the skin at bedtime. Active ferrous gluconate (FERGON) 324 mg (38 mg iron) tablet Take 324 mg by mouth daily with breakfast. Active flash glucose sensor (FREESTYLE SYLVIA 2 SENSOR) kit 1 Units by misc (non-drug; combo route) route every 14 days. Must keep appt for additional refills. 6 Kit 06/13/2021 Active Active Problems Problem Noted Date Diagnosed Date MALCOLM (latent autoimmune diab etes mellitus in adults) ([facility]) 06/28/2020 Last Assessment & Plan: Switch lantus to the morning and decrease to 9 units. Discussed how this will help prevent lows overnights. Encouraged her success on good control of her BG's. Continue to use Sylvia CGM. Follow-up in 2 months. Sign up for Sylvia View and Mychart account and reach out in 1 month to review data with concerns. Discussed carb intake and adding whole complex carbs. She continues to work on finding an clinical nutrition manager near her home. Social History Tobacco Use Types Packs/Day Years [...] 9:14 EST Sexual Orientation Not on file Obstetrics History Last Filed Vital Signs Vital Sign Reading Time Taken Comments Blood Pressure 142/86 07/28/2020 0811 EST Pulse 64 07/28/2020 0811 EST Temperature - - Respiratory Rate 16 07/28/2020 0811 EST Oxygen Saturation - - Inhaled Oxygen Concentration - - Weight 52.2 kg (115 lb) 07/28/2020 0811 EST Height 175 cm (5' 8.9) 06/28/2020 1256 EST Body Mass Index 17.03 06/28/2020 1256 EST Plan of Treatment Health Maintenance Due Date Last Done Comments Hepatitis C Screen 1970 Hepatitis B Vaccine (1 of 3 - 19+ 3-dose series) 07/14 COVID-19 Vaccine ( - season) 2023 Care Teams Net Technical Architect Relationship Specialty Start Date End Date Juan C [facility] [address] [place] [address] PCP - General 06/28/20
--- OUTSIDE RECORDS SUMMARY | 2024-02-04 16:16 | XMS_ITS | Referral Summary ---
Author Organization [facility] Address [address] [place] [address] Care Team Providers Care Striper Name Role Phone Julio Cesar Irizarry [facility] Primary Care Provider [phone] [phone] Allergies No known active allergies Medications Medication [...] (latent autoimmune diab etes mellitus in adults) ([facility]) 06/28/2020 Last Assessment & Plan: Switch [...] She continues to work on finding an direct service professional near her home. Social History Tobacco Use [...] 9:14 EST Sexual Orientation Not on file Last Filed Vital Signs Vital Sign Reading [...] 17.03 06/28/2020 1256 EST Plan of Treatment Not on file Care Teams Striper Relationship Specialty Start Date End Date [facility] [address] [place] [address] PCP - General 06/28/20
--- OUTSIDE RECORDS SUMMARY | 2024-02-04 16:16 | XMS_ITS | Encounter Summary ---
Author Organization [facility] Address [address] [place] [address] Care Team Providers Care Donation Specialist Name Role Phone Julio Cesar Irizarry [facility] Primary Care Provider [phone] Reason for Visit * Reason Onset Date Comments Medications Refill 06/19/2021 Encounter Details Date Type Department Care Team (Late st Contact Info) Description 06/19/[address] [facility] [place] [address] [place] [address] Shanthi Garcia RN Medications Refill Social History [...] on file documented as of this encounter Miscellaneous Notes * Telephone Encounter - Shanthi Garcia RN - 06/19/2021 1131 EST Prescription refused as it was just refilled on 06/13 and pt has not made follow up appt. documented in this encounter Plan of Treatment Not on file documented as of this encounter Visit Diagnoses Not on filedocumented in this encounter Care Teams Donation Specialist Relationship Specialty Start Date End Date [facility] [address] [place] [address] PCP - General 06/28/20 documented as of this encounter
--- OUTSIDE RECORDS SUMMARY | 2024-02-04 16:16 | XMS_ITS | Encounter Summary ---
Author Organization [facility] Address [address] [place] [address] Care Team Providers Care Bank Manager Name Role Phone Julio Cesar Irizarry [facility] Primary Care Provider +1 [phone] Encounter Details Date Type Department Care Team (Late st Contact Info) Description 08/14/2019 Lab Requisition [facility] Pathology & Laboratory Medicine - [facility] [address] [place] [address] Unknown, Provider, Social History Tobacco Use Types Packs/Day Years Used Date Smoking Tobacco: Never Assessed Sex and Gender Information Value Date Recorded Sex Assigned at Not on file Gender Identity Female 06/28/2020 9:14 EST Sexual Orientation Not on file documented as of this encounter Plan of Treatment Not on file documented as of this encounter Procedures Procedure Name Priority Date/Time Associated Diagnosis Comments HEPATITIS B SURFACE ANTIBODY Routine 08/14/2019 13:08 EST documented in this encounter Results * HEPATITIS B SURFACE ANTIBODY (08/14/2019 13:08 EST) Hep B Surface Ab, Quantitative >1,000.0 See Note mIU/mL 08/17/2019 9:54 EST [facility] Comment: Reference Range for Hep B Surface Ab, Quant: Positive: >= 10.0 mIU/mL Negative: ??< 10.0 mIU/mL Patient is presumed to be immune to infection with Hepatitis B Virus. Hep B Surface Ab, Qualitative Positive See Note 08/17/2019 9:54 EST [facility] Comment: Reference Range for Hep B Surface Ab, Qual: Unvaccinated: ??Negative Vaccinated: ??Positive Blood VENOUS BLOOD / Unknown 08/14/2019 13:08 EST 08/14/2019 21:55 EST Provider Unknown CHEMISTRY & BLOOD GA S ORDERABLES Performing Organization Address City/State/[facility] Co de Phone Number [facility] [address] [place] [address] documented in this encounter Visit Diagnoses Not on filedocumented in this encounter Care Teams Bank Manager Relationship Specialty Start Date End Date [facility] [address] [place] [address] PCP - General 06/28/20 documented as of this encounter
--- OUTSIDE RECORDS SUMMARY | 2024-02-04 16:16 | XMS_ITS | Encounter Summary ---
Author Organization [facility] Address [address] [place] [address] Care Team Providers Care Nutrition Helper Name Role Phone Unavailable Primary Care Provider Unavailabl e Encounter Details Date Type Department Care Team (Late st Contact Info) Description 06/15/2020 Abstract [facility] [place] [address] [place] [address] Sally Krause RN Social History Tobacco Use Types Packs/Day Years Used Date Smoking Tobacco: Never Assessed Interpersonal Safety Answer Date Record ed Physically [...] Diagnoses Not on filedocumented in this encounter Historical Medications * This list may reflect changes made after this encounter. Medication Sig Dispensed Refills Start Date End Date insulin glargine (LANTUS SOLOSTAR) 100 unit/mL (3 mL) injection penIndications:increased to 10 units by pcp Inject 8 Units into the skin at bedtime. insulin pen needles 31G x 3/16 (PEN NEEDLE) by misc (non-drug; combo route) route daily. cholecalciferol, Vitamin D3, 1,000 unit tablet Take 2,000 Units by mouth daily. nicotine (NICODERM CQ) 21 mg/[address] 21 mg onto the skin daily. metFORMIN (GLUCOPHAGE) 1,000 mg tablet Take 1,000 mg by mouth 2 times daily. SITagliptin (JANUVIA) 100 mg tablet Take 100 mg by mouth daily. 07/28/2020 added in this encounter
--- OUTSIDE RECORDS SUMMARY | 2024-02-04 16:16 | XMS_ITS | Continuity of Care Document ---
Author Organization [facility] Address [address] [place] [address] Care Team Providers Care Sagger Filler Name Role Phone Natalie Jeff Primary Care Physician [phone] Encounter [id number] Date(s): 06/22/22 - 06/22/22 [facility] [address] [place] [address] Discharge Disposition: Home or Self Care Attending Physician: Cali Thomas MD Admitting Physician: Cali Thomas MD Referring Physician: Natalie Jeff MD Allergies, Adverse Reactions, Alerts No Known Medication Allergies Functional Status 06/22/22 ADLs Independent Family Member Travel History No recent t ravel Recent Travel History No recent travel Other exposure to Infectious Disease Non e 06/19/22 Living Situation Home independently Immunizations Given and Recorded Vaccine Date Status Refusal Reason influenza virus vaccine, inactivated 1 04/14/22 Re corded zoster vaccine, inactivated 08/29/21 Recorded SARS-CoV-2 (COVID-19) mRNA-1273 vaccine 04/18/21 R ecorded SARS-CoV-2 (COVID-19) mRNA-1273 vaccine 07/11/20 R ecorded SARS-CoV-2 (COVID-19) mRNA-1273 vaccine 06/14/20 R ecorded influenza virus vaccine, live 03/03/21 Recorded influenza virus vaccine, live 03/18/20 Recorded tetanus/diphth/pertuss (Tdap) adult/adol 12/01/20 Recorded varicella virus vaccine 04/27/20 Recorded varicella virus vaccine 03/23/20 Recorded measles/mumps/rubella virus vaccine 04/27/20 Recor ded measles/mumps/rubella virus vaccine 03/23/20 Recor ded 1Result Comment: [employer] Medications Basaglar KwikPen 100 units/mL subcutaneous solution 0 Refill(s) Start Date: 05/04/22 Status: Ordered insulin lispro 100 units/mL injectable solution 0 Refill(s) Start Date: 05/04/22 Status: Ordered metFORMIN 1000 mg oral tablet 1,000 mg = 1 tab, Oral, TID, take one tablet in the am and the evening take one half tab mid day, #180 tab, 0 Refill(s) Start Date: 05/04/22 Status: Ordered Vitamin D3 0 Refill(s) Start Date: 05/04/22 Status: Ordered Problem List Condition Confirmation Course Effective Dates Status Health St atus Informant Anemia Confirmed Active Diabetes Confirmed Active Iron deficiency Confirmed Active Meralgia paresthetica of right side Confirmed Active Vitamin D deficiency Confirmed Active Procedures Procedure Date Related Diagnosis Body Site Status Colonoscopy 1 06/21/22 Completed Tubal ligation 06/16/97 Completed Tonsillectomy 06/16/76 Completed 1Screening recommendations: Colonoscopy in 10 years. Results Laboratory List Name Date Glucose POCT 06/22/22 Most recent to oldest [Reference Range]: 1 Glucose POC [74-106 mg/dL] 192 mg/dL *HI* (06/22/22 11:25 AM) Vital Signs Most recent to oldest [Reference Range]: 1 2 3 Temperature Oral [35.8-37.3 Deg C] 36.8 Deg C (06/22/22 11:08 AM) Temperature Oral (DegF) [96.4-99.1 Deg F] 98.24 Deg F (06/22/22 11:08 AM) Temperature Temporal Artery [36-38 Deg C] 36.3 Deg C (06/22/22 1:19 PM) Temperature Temporal Artery (DegF) [97.3-100 Deg F] 97.34 Deg F (06/22/22 1:19 PM) Peripheral Pulse Rate [60-100 bpm] 90 bpm (06/22/22 1:30 PM) 85 bpm (06/22/22 1:25 PM) 80 bpm (06/22/22 1:20 PM) Heart Rate Monitored [60-100 bpm] 88 bpm (06/22/22 1:30 PM) 88 bpm (06/22/22 1:25 PM) 79 bpm (1/6/23 1:20 PM) Respiratory Rate [12-24 br/min] 18 br/min (06/22/22 1:30 PM) 20 br/min (06/22/22 1:25 PM) 12 br/min (06/22/22 1:20 PM) Blood Pressure [90-140/60-90 mmHg] 126/79mmHg (06/22/22 1:30 PM) 127/75mmHg (06/22/22 1:25 PM) 127/75mmHg (06/22/22 1:20 PM) Mean Arterial Pressure, Cuff [65-140 mmHg] 95 mmHg (06/22/22 1:30 PM) 92 mmHg (06/22/22 1:25 PM) 92 mmHg (06/22/22 1:20 PM) Blood Pressure Location Right arm (06/22/22 11:08 AM) Blood Pressure Method Automatic (06/22/22 11:08 AM) Weight 64.4 kg (06/22/22 11:08 AM) Height 173.5 cm (06/22/22 11:08 AM) Social History Social History Type Response Smoking Status Smoking tobacco use: Current everyday tobacco user;Never; Number used per day: 5-8; Number of years: 25; entered on: 06/19/22 Sex Female Hospital Discharge Instructions Patient Education 06/22/2022 12:42:36 ss colonoscopy discharge instructions (CUSTOM) COLONOSCOPY / SIGMOIDOSCOPY Following day: Return to full activity, including work. Diet: Eat and drink normally, unless instructed otherwise. Treatment for common after affects: Mild abdominal pain, bloating, or excessive gas: Rest, eat lightly and use a heating pad. Symptoms to watch for and report to your physician: SEVERE abdominal pain or bloating. Fever within 24 hours after procedure. A large amount of rectal bleeding. (A small amount of blood from the rectum is not serious, especially if hemorrhoids are present.) If a polyp has been removed- for the next seven days: Do not take aspirin. If you did NOT stop taking aspirin before your procedure, continue taking it even if you???ve had a polyp removed. If bright red rectal bleeding occurs, call your physician. If you have had a Colonoscopy: Do not attempt to drive a vehicle or operate power equipment of any kind for at least 24 hours after discharge from the hospital. Do not consume alcoholic beverages or other mood-altering drugs on the day of surgery. Mild irritation at needle site: Apply warm, moist pack to area for 20 minutes four times a day for 2-3 days. Call physician if persistent redness and/or drainage at needle site. In the event of any problems after surgery, do not hesitate to contact your doctor, [facility] , or the Emergency Room at [phone]. Diagnosis: Doctor: Follow Up Appointment: Follow Up Care 05/01/2022 10:10:19 With:Cali Thomas MD Address: [address] [address]- When: Unknown Comments:Screening??colonoscopy in??10 years. Discharge instructions * Albino Miramontes RN: PERFORM Event Display: Discharge Instructions Authored Date: [id number] ADOLFO MALAGON :1970 Age:51 years Sex:Female Visit Date:06/22/2022 Primary Care Physician: Natalie Jeff MD Hospital Discharge Instructions We would like to thank you for allowing us to assist you with your healthcare needs. The following includes patient education materials and information regarding your injury/illness. After you leave the hospital, you may get your health information including your test results, physician notes and discharge information by accessing your Patient Portal. Your Next Steps Discharge Orders Discharge Patient Instructions, Rest today. Resume diet and activities as tolerated. Follow Up Appointments Follow Up with??Cali Thomas MD Why: Screening??colonoscopy in??10 years. Where: [address] [address]- Your Summary Your Care Team Admitting Physician - Cali Thomas MD Attending Physician - Cali Thomas MD Primary Care Physician - Natalie Jeff MD Referring Physician - Natalie Jeff MD Allergies No Known Medication Allergies Education Materials COLONOSCOPY / SIGMOIDOSCOPY ? Following day: Return to full activity, including work. Diet: Eat and drink normally, unless instructed otherwise. ? Treatment for common after affects: Mild abdominal pain, bloating, or excessive gas: Rest, eat lightly and use a heating pad. ? Symptoms to watch for and report to your physician: SEVERE abdominal pain or bloating. ? Fever within 24 hours after procedure. ? A large amount of rectal bleeding. (A small amount of blood from the rectum is not serious, especially if hemorrhoids are present.) ? If a polyp has been removed- for the next seven days: Do not take aspirin. If you did NOT stop taking aspirin before your procedure, continue taking it even if you???ve had a polyp removed. ? If bright red rectal bleeding occurs, call your physician. ? If you have had a Colonoscopy: Do not attempt to drive a vehicle or operate power equipment of any kind for at least 24 hours after discharge from the hospital. ? Do not consume alcoholic beverages or other mood-altering drugs on the day of surgery. ? Mild irritation at needle site: Apply warm, moist pack to area for 20 minutes four times a day for 2-3 days. ? Call physician if persistent redness and/or drainage at needle site. ? In the event of any problems after surgery, do not hesitate to contact your doctor, [facility] , or the Emergency Room at [phone]. Diagnosis: Doctor: Follow Up Appointment: Patient Name:ADOLFO MALAGON I have received this information and my questions have been answered. Patient/Soaker Name: Patient/Soaker Signature: Relationship to Patient: Witness Name/Signature: Date: Electronically Signed on: 06/22/2022 13:43 ESTSigned by:TD History and physical note * Cali Thomas MD: PERFORM Event Display: History and Physical Authored Date: [id number] ADOLFO MALAGON :1970 Age:51 years Sex:Female Visit Date:06/22/2022 Primary Care Physician: Natalie Jeff MD See paper H&P; pt examined. Proceed as planned with screening colonoscopy. ?? Cali Thomas MD 06/22/2022 ?? Electronically Signed on 06/22/22 12:34 PM Cali Thomas MD * Qing Galeano: PERFORM Event Display: History and Physical Authored Date: [id number] KASHFORRESTSERENITY MILLERAH :1970 Age:51 years Sex:Female Screening colonoscopy Electronically Signed on 05/04/22 02:03 PM Qing Galeano Patient Care team information Personnel Name: Natalie Jeff MD Address: Address: [address] [address]-
--- OUTSIDE RECORDS SUMMARY | 2024-02-04 16:16 | XMS_ITS | Encounter Summary ---
Author Organization 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 Others were not charged. Given sample Freestyle Sylvia 2 reader and CGM instead. Placed in RUE. Educated on administration an use of reader. She will continue to write down her meals and medication regimen. Reviewed lab work. Cpeptide 0.5 fasting. IRENE 0.17. Discussed MALCOLM diagnosis and further need of insulin going forward. We will stop januvia as this is no longer needed. Continue with metformin and lantus as discussed. F/up in 2-4 weeks for review of CGM data. Will look to either continue with Sylvia 2 or switch to Dexcom. 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 Cpeptide 0.5 fasting. IRENE 0.17. Discussed MALCOLM diagnosis and further need of insulin going forward. We will stop januvia as this is no longer needed. Continue with metformin and lantus as discussed. F/up in 2-4 weeks for review of CGM data. Will look to either continue with Sylvia 2 or switch to Dexcom. 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
--- OUTSIDE RECORDS SUMMARY | 2024-02-04 16:16 | XMS_ITS | Encounter Summary ---
Author Organization [facility] Address [address] [place] [address] Care Team Providers Care Site Worker Name Role Phone Julio Cesar Irizarry [facility] Primary Care Provider [phone] Encounter Details Date Type Department Care Team (Late st Contact Info) Description 01/16/2020 Lab Requisition [facility] Pathology & Laboratory Medicine - [facility] [address] [place] [address] Outr Resulting Lab, Provider Social History Tobacco Use Types Packs/Day Years Used Date Smoking Tobacco: Never Assessed Sex and Gender Information Value Date Recorded Sex Assigned at Not on file Gender Identity Female 06/28/2020 9:14 EST Sexual Orientation Not on file documented as of this encounter Plan of Treatment Not on file documented as of this encounter Procedures Procedure Name Priority Date/Time Associated Diagnosis Comments CELIAC DISEASE PANEL Routine 01/15/2020 12:13 EDT documented in this encounter Results * CELIAC DISEASE PANEL (01/15/2020 12:13 EDT) Tissue Transglutaminase Antibody IGA <1.2 <4.0 U/mL 01/18/2020 12:42 EDT [facility] Comment: A negative result may be due to IgA deficiency and does not rule out celiac disease. ? Negative: ??<4.0 U/mL ? Weak Positive: ??4.0 - 10.0 U/mL ? Positive: ??>10.0 U/mL Results were obtained with the [employer] Lite R h-tTG IgA NARCISO assay on the [employer]nex DSX. IgA 156 85 - 499 mg/dL 01/18/2020 12:42 EDT [facility] Celiac Disease Interpretation Negative Serology. Celiac disease unlikely. Approximately 10% of patients with celiac disease are seronegative. Patients who are already adhering to a gluten-free diet may also be seronegative. If celiac disease is highly clinically suspected, referral to gastroenterology for additional evaluation is recommended. 01/18/2020 12:42 EDT [facility] Blood VENOUS BLOOD / Unknown 01/15/2020 12:13 EDT 01/17/2020 16:39 EDT Provider Outr Resulting Lab IMMUNOLOGY A ND SEROLOGY ORDERABLES Performing Organization Address City/State/[facility] Co de Phone Number [facility] [address] [place] [address] documented in this encounter Visit Diagnoses Not on filedocumented in this encounter Care Teams Site Worker Relationship Specialty Start Date End Date Juan C, [facility] [address] [place] [address] PCP - General 06/28/20 documented as of this encounter
[2024-02-04 18:17] LABS: ALT 18 U/L (14-59); AST 19 U/L (15-37); Albumin 3.9 g/dL (3.4-5.0); Alkaline Phosphatase 68 U/L (46-116); Anion Gap 8.7 mmol/L (3-11); BUN 8 mg/dL (7-18); Bilirubin, Total 0.25 mg/dL (0.2-1.0); CO2 29.3 mmol/L (21.0-32.0); CREATININE 0.8 mg/dL (0.55-1.02); Calcium 9.7 mg/dL (8.5-10.1); Calculated LDL 99 mg/dL (<100); Chloride 105 mmol/L (98-107); Cholesterol 179 mg/dL (<200); Estimated GFR 88.05 (mL/min/1.73m2); Glucose 90 mg/dL (74-106); HDL Cholesterol 63 mg/dL (40-60); Potassium 4.6 mmol/L (3.5-5.1); Sodium 143 mmol/L (136-145); Total Protein 7.5 g/dL (6.4-8.2); Triglyceride 86 mg/dL (<150); Vitamin D 25 Total 26.4 ng/mL (30-100)
[2024-02-04 18:43] LABS: Hemoglobin A1C 8.1 % (<5.7)
[2024-02-04 18:56] LABS: COMMENT (LAB VIEW ONLY) 50.13 mg/dL; Microalb ug/mg Crea 17.8 ug/mg Cr
== END 2024-02-04 16:13 | disposition home or self-care (01) ==
LOC: NCHCN 16:12
PROVIDERS: PCP Family Medicine; Visit Provider Family Medicine
DX: E55.9 Vitamin D deficiency, unspecified (principal); E13.9 Other specified diabetes mellitus without complications
CPT/HCPCS: 80053; 80061; 82306; 82043; 82570; 83036